=== PATIENT | male | born 1970 | race Caucasian/White ===

== ENCOUNTER 2024-03-18 10:38 | Emergency (ER) | payer BC, SELFPAY ==
[2024-03-18 10:54] VITALS: BP 155/113
--- NOTE | 2024-03-18 11:05 | ED.GENMED ---
History of Present Illness
<Marion Jimenes PA-C - Last Filed: 03/18/24 14:44>
General
Chief Complaint: Abdominal Symptoms
Source: patient
Exam Limitations: none
Time Seen by Provider: 03/18/24 11:04
Nursing documentation reviewed up to this point in time: agreed with
History of Present Illness
History of Present Illness:
This is a 53 y/o male with a PMH of coronary artery disease with multiple stents placed, hypertension, presenting emergency department today with concerns of nausea, vomiting, and generalized GI symptoms. Patient states that 3 days ago, he woke up
feeling nauseous and subsequently had multiple episodes of vomiting. Patient also states that that same day, he had a few episodes of diarrhea. Patient states that he also noted a 'queasy' feeling in his stomach but denies abdominal pain, chest
pain. Patient states that the next day, he started to feel chills as well but states that he never had a fever. Patient states that his illness waxes and wanes and states that he feels like he will be turning the corner and then he will have more
vomiting again. Patient states that day ago he is able to tolerate some rice, however the next day he had persistent vomiting and was not able to tolerate orally his blood pressure medications or even water. Patient states that he is trying to
stick at home and try to stay hydrated but he just could not tolerate it the mild nausea he was having. Patient states that he did a similar episode to this around 8 months ago or so and states that he was seen by his family provider who encouraged
symptomatic management and he states that it got better on its own.
Past History
<Marion Jimenes PA-C - Last Filed: 03/18/24 14:44>
Past History
ED Past Medical History: HTN
ED Past Surgical History: Orthopedic (Knee surgery)
Social History
Tobacco: Non-smoker
Alcohol: Occasional
Personal:
Living: with family
Employment: Employed
Family History
Family History: Hypertension
Review of Systems
<Marion Jimenes PA-C - Last Filed: 03/18/24 14:44>
Review of Systems
All Other Systems: ROS reviewed and negative except as documented in HPI and ROS
Phy Exam
<Marion Jimenes PA-C - Last Filed: 03/18/24 14:44>
Physical Exam
Physical Exam:
General: Patient is well appearing and in no acute distress; non-toxic
Skin: Warm and dry, no rashes or lesions
Head: Normocephalic, atraumatic
Eyes: Sclera non-icteric. EOMs intact. PERRLA.
Cardiac: Regular rate and rhythm, no murmurs
Peripheral Vascular: No lower extremity swelling or edema
Pulm: Normal respiratory effort, equal breath sounds bilaterally, no wheezes, rales, rhonchi
Abdomen: No abdominal tenderness to palpation, no palpable masses
Neuro: CN II-XII intact, no focal neurologic deficits.
Psychiatric: Appropriate mood and affect.
Course
<Marion Jimenes PA-C - Last Filed: 03/18/24 14:44>
Orders/Labs/Results
Orders:
Orders
03/18/24 11:23
0.9% Sodium Chloride 500 ml [Nss] 500 ml IV BOLUS
Ondansetron HCl [Zofran] 4 mg PO NOW STA
03/18/24 11:28
Electrocardiogram (*1) Urgent
Reason for Study: Hypertension, Benign
EKG- Treatment ONCE
03/18/24 11:40
Complete Blood Count/With Diff Urgent
Comprehensive Metabolic Panel Urgent
03/18/24 11:51
Ondansetron Injectable [Zofran] 4 mg IV NOW STA
03/18/24 12:55
0.9% Sodium Chloride 500 ml [Nss] 500 ml IV BOLUS
Abnormal Lab Results
03/18/24
11:40
WBC 12.8 H 10^3/uL
(4.8-10.8)
Absolute Neuts (auto) 9.1 H 10^3/uL
(1.4-6.5)
Absolute Monos (auto) 1.4 H 10^3/uL
(0.1-0.6)
Lymphocytes % 16.9 L %
(20.5-51.1)
Monocytes % 11.0 H %
(1.7-9.3)
Potassium 3.4 L mmol/L
(3.5-5.1)
BUN 37 H mg/dl
(9-20)
Glucose 103 H mg/dl
(70-99)
Albumin 5.3 H g/dl
(3.5-5.0)
03/18/24 11:40
03/18/24 11:40
Vital Signs
Initial and Last Documented VS:
Initial Vital Signs
Temp Pulse Resp BP Pulse Ox
98.3 F 84 18 155/113 97
03/18/24 10:54 03/18/24 10:54 03/18/24 10:54 03/18/24 10:54 03/18/24 10:54
Last Documented Vital Signs
Temp Pulse Resp BP Pulse Ox
98.3 F 72 18 139/93 98
03/18/24 10:54 03/18/24 14:09 03/18/24 14:09 03/18/24 14:09 03/18/24 14:09
<Lewis Sainz, - Last Filed: 03/18/24 12:00>
Orders/Labs/Results
Orders:
Orders
03/18/24 11:23
0.9% Sodium Chloride 500 ml [Nss] 500 ml IV BOLUS
Ondansetron HCl [Zofran] 4 mg PO NOW STA
03/18/24 11:28
Electrocardiogram (*1) Urgent
Reason for Study: Hypertension, Benign
EKG- Treatment ONCE
03/18/24 11:40
Complete Blood Count/With Diff Urgent
Comprehensive Metabolic Panel Urgent
03/18/24 11:51
Ondansetron Injectable [Zofran] 4 mg IV NOW STA
03/18/24 12:55
0.9% Sodium Chloride 500 ml [Nss] 500 ml IV BOLUS
Abnormal Lab Results
03/18/24
11:40
WBC 12.8 H 10^3/uL
(4.8-10.8)
Absolute Neuts (auto) 9.1 H 10^3/uL
(1.4-6.5)
Absolute Monos (auto) 1.4 H 10^3/uL
(0.1-0.6)
Lymphocytes % 16.9 L %
(20.5-51.1)
Monocytes % 11.0 H %
(1.7-9.3)
Potassium 3.4 L mmol/L
(3.5-5.1)
BUN 37 H mg/dl
(9-20)
Glucose 103 H mg/dl
(70-99)
Albumin 5.3 H g/dl
(3.5-5.0)
03/18/24 11:40
03/18/24 11:40
Vital Signs
Initial and Last Documented VS:
Initial Vital Signs
Temp Pulse Resp BP Pulse Ox
98.3 F 84 18 155/113 97
03/18/24 10:54 03/18/24 10:54 03/18/24 10:54 03/18/24 10:54 03/18/24 10:54
Last Documented Vital Signs
Temp Pulse Resp BP Pulse Ox
98.3 F 72 18 139/93 98
03/18/24 10:54 03/18/24 14:09 03/18/24 14:09 03/18/24 14:09 03/18/24 14:09
<Marion Jimenes PA-C - Last Filed: 03/18/24 14:44>
MDM/Problems Addressed
Differential Diagnosis Includes:
ddx include gastroenteritis, irritable bowel disease, c diff infection, ACS, ulcerative colitis, viral syndrome
MDM/Problems Addressed:
Nausea and vomiting:
This is a 53 y/o male with a PMH of coronary artery disease with multiple stents placed, hypertension, presenting emergency department today with concerns of nausea, vomiting, and generalized GI symptoms. Patient states that 3 days ago, he woke up
feeling nauseous and subsequently had multiple episodes of vomiting. Patient also states that that same day, he had a few episodes of diarrhea. Patient states that he also noted a 'queasy' feeling in his stomach but denies abdominal pain, chest
pain. Diarrhea has since resolved but his nausea and vomiting persist. Patient states that he cannot keep medications or water down. Patient was given a total of 1 L of fluid here in the emergency department, his CBC demonstrated mild
leukocytosis and his CMP demonstrated elevated BUN. His EKG today demonstrates a prolonged QT. After fluids and a dose of Zofran, patient did feel a lot better, was able to tolerate water without vomiting. Considering patient's prolonged QT, we
will send him home with Tigan to his pharmacy to use as needed for symptomatic treatment. Return precautions discussed, patient stable for discharge.
Chronic conditions affecting care:
CAD, HTN, GERD, HLP
Acute Exacerbation and/or Progression of Chronic Illness:
HTN-- patient has not been taking his BP medications due to persistent vomiting. Patient's blood pressure elevated upon presentation. Patient's blood pressure improved to 139/93 after treatment. I advised to restart his medications and to follow up
with his primary care.
<Marion Jimenes PA-C - Last Filed: 03/18/24 14:44>
*Pulse Oximetry
Patient hypoxic: no
*EKG
Interpreted by ED Provider?: Yes
EKG Intrepretation Date: 03/18/24
Interpretation: abnormal
Comparison EKG: changes noted (PVCs now present)
Heart Rate: 70
Rate: normal
Rhythm: sinus and PVC's
[employer]: normal axis
Interval: long QT
QRS Pattern: normal QRS
Ischemia: no ischemia
*Critical Care Note
Total Time (30-74mins, 75-104mins- exclusive of procedures): Not Applicable
Data Reviewed
Review of Other/Old Records Reveals: Records (reviewed ER physician documentation from 05/12/23 where patient was seen for similar symptoms )
Source: patient and records
Further Testing Considered But Not Given:
considered CT scan of the abdomen however patient has no tenderness on exam
<Marion Jimenes PA-C - Last Filed: 03/18/24 14:44>
Patient Management
Escalation/DeEscalation of care consider admission/obs:
Admit not indicated. Patient stable for discharge.
<Marion Jimenes PA-C - Last Filed: 03/18/24 14:44>
Update Note
Update Note:
12:53 pm-- Fluids completed. Lab work demonstrates increase in BUN with mild leukocytosis. Trial of water PO, patient was able to tolerate this with a lot of nausea but no vomiting. Prolonged QT noted. Elevated BUN. Will give another 500 ml bag and
reassess
1:53 pm-- On reassessment, second 500 bag is almost completed and patient feels a lot better. Will discharge with Tigan
ED Attending Note
<Marion Jimenes PA-C - Last Filed: 03/18/24 14:44>
-
Portions of this chart may have been created with voice recognition software.� Occasional wrong word or��sound alike� substitutions may have occurred due to the inherent limitations of voice recognition software.
<Lewis Sainz DO - Last Filed: 03/18/24 12:00>
ED Attending Note
Patient seen and examined by attending physician: Yes
I performed the substantive portion of visit, reviewed & personally made and approve the management plan that is documented in note by myself or EVARISTO.: Yes
ED Attending Note:
Seen with PA examined independently nausea vomiting diarrhea for few days history of CAD with stents, no chest pain or shortness of breath will check EKG labs IV fluids antiemetics
Discharge Plan
Departure
Patient Disposition: Home (Routine Discharge)
Date of Disposition: 03/18/24
Time of Disposition: 13:51
Patient with high blood pressure during this ER visit?: Yes
Condition: Good
Discharge Problem:
Nausea and vomiting
Instructions: [place] Diet, Nausea and Vomiting, Adult (DC), BLOOD PRESSURE
Prescriptions:
New
trimethobenzamide 300 mg capsule
300 mg PO Q6H PRN (Reason: nausea and vomiting) Qty: 8 0RF
No Action
carvedilol [Coreg] 25 MG tablet
25 mg PO BID
amlodipine [Norvasc] 5 MG tablet
5 mg PO DAILY
aspirin 81 MG tablet,chewable
81 mg PO DAILY
prasugrel [Effient] 10 MG tablet
10 mg PO DAILY
benazepril 40 mg Tablet
40 mg PO DAILY
rosuvastatin [Crestor] 40 mg Tablet
40 mg PO QPM
Referrals:
Emmanuel Felipe Jr., DO [Family Provider] -
Activity Restrictions/Additional Instructions:
Please resume your blood pressure medications.
We have sent Tigan, an anti-nausea medication to your pharmacy. You can take one tablet every 6 hours as needed for nausea.
Please return to the emergency department should you experience fevers or chills, abdominal pain, chest pain, shortness of breath.
Follow up with your primary care provider in one week for reassessment.
Interventions
Interventions:
*Risk Screen - Suicide Last Done: 03/18/24 10:54
*General Assessment Last Done: 03/18/24 10:54
*Neglect/Abuse Screening Last Done: 03/18/24 10:54
*ED COVID-19 Vaccine History Last Done: 03/18/24 13:57
*Nursing Disposition Last Done: 03/18/24 14:11
HJ-Ajrkdm-Jcplphlkis Assessment Last Done: 03/18/24 13:57
Discharge Date and Time
Discharge Date/Time: 03/18/24 14:11
Print Language: AMHARIC
[2024-03-18 11:32] VITALS: BMI 27.8
[2024-03-18] MEDS: NSS 500 IV ×2 (11:39→13:15)
[2024-03-18] MEDS: ZOFRAN 4 MG IV (11:54)
[2024-03-18 12:15] LABS: % Basophils 0.3 % (0-2); % Eosinophils 0.2 % (0-6); % Immature Granulocytes 0.3 % (0-0.5); % Lymphocytes 16.9 % (20.5-51.1); % Neutrophils 71.3 % (42.2-75.2); Absolute Lymphocytes 2.2 10^3/uL (1.2-3.4); Absolute Monocytes 1.4 10^3/uL (0.1-0.6); Absolute Neutrophils 9.1 10^3/uL (1.4-6.5); Hematocrit 40.5 % (39.0-52.0); Hemoglobin 14.8 g/dL (13.0-18.0); Mean Corp Hgb Conc. 36.5 g/dL (33.0-37.0); Mean Corpuscular Hgb 30.8 pg (27.0-31.0); Mean Corpuscular Volume 84.2 fL (80.0-94.0); Nucleated Red Blood Cells % 0 % (-); Platelet Count 368 10^3/uL (130-400); Red Blood Cell Count 4.81 10^6/uL (4.70-6.10); Red Cell Dist. Width 12.6 % (11.5-14.5); White Blood Cell Count 12.8 10^3/uL (4.8-10.8)
[2024-03-18 12:23] LABS: ALT (SGPT) 32 U/L (0-50); AST (SGOT) 43 U/L (17-59); Albumin 5.3 g/dl (3.5-5.0); Alkaline Phosphatase 70 U/L (38-126); Blood Urea Nitrogen 37 mg/dl (9-20); Calcium 10.2 mg/dl (8.4-10.2); Carbon Dioxide 22 mmol/L (22-30); Chloride 99 mmol/L (98-107); Estimated Creatinine Clearance 96 ml/min; Glucose 103 mg/dl (70-99); Potassium 3.4 mmol/L (3.5-5.1); Sodium 138 mmol/L (135-145); Total Bilirubin 1.3 mg/dl (0.2-1.3); Total Protein 8.2 g/dl (6.3-8.2); eGFR > 60.00
[2024-03-18 14:09] VITALS: BP 139/93
== END 2024-03-18 14:11 | disposition home or self-care (01) ==
LOC: EMR 10:38
PROVIDERS: Physician Assistant; EMERGENCY PHYSICIAN Emergency Medicine; FAMILY PHYSICIAN Family Medicine
DX: R11.2 Nausea with vomiting, unspecified (principal); R19.7 Diarrhea, unspecified; R68.83 Chills (without fever); I25.10 Atherosclerotic heart disease of native coronary artery without angina pectoris; I10 Essential (primary) hypertension; K21.9 Gastro-esophageal reflux disease without esophagitis; I25.2 Old myocardial infarction; Z95.5 Presence of coronary angioplasty implant and graft; Z87.891 Personal history of nicotine dependence; Z79.82 Long term (current) use of aspirin; Z88.0 Allergy status to penicillin
CPT/HCPCS: 99284; 96374; 96361 ×2; 80053; 85025; 93005

== ENCOUNTER 2024-07-29 10:30 | Emergency (ER) | payer BC, SELFPAY ==
[2024-07-29 10:40] VITALS: BP 169/110
--- NOTE | 2024-07-29 10:40 | ED.GENMED ---
ED Provider Triage
<Antonia Verduzco PA-C - Last Filed: 07/31/24 07:04>
-
Patient seen by provider in Triage?: Seen in Triage
53 y/o M with h/o ND
nausea/vomiting and epigastric pain for 5 days
denies fever, chills, diarrhea
not tolerating meds, water, food
gets pain that comes in waves and now constant
drinks alcohol daily 2 burbon drinks nights
tried prescription med thinks it might be Compazine or could have been Tigan, he does have a history of prolonged QTc. This did not help and he is vomiting over that
Patient denies any chest pain. He has not been able to keep down any of his blood pressure medications.
He does use marijuana nightly.
He has had 3 of these episodes without any findings on CT scan or blood work.
History of Present Illness
<Antonia Verduzco PA-C - Last Filed: 07/31/24 07:04>
General
Chief Complaint: Abdominal Symptoms
Time Seen by Provider: 07/29/24 11:11
<Marion Jimenes PA-C - Last Filed: 07/29/24 18:10>
General
Source: patient
Exam Limitations: none
Nursing documentation reviewed up to this point in time: agreed with
History of Present Illness
History of Present Illness:
53-year-old male with a past medical history of CAD, hypertension, hyperlipidemia, GERD presents emergency department today with concerns of epigastric pain and nausea and vomiting for the past 4 days. Patient reports that he has had multiple
episodes of this in the past and states that it feels exactly the same as those times, patient states that he has not followed up with GI for this since and has never gotten endoscopy. Patient describes the pain as indigestion and states that it
radiates to the chest. It is worse after eating. He denies dark tarry stools, dizziness, lightheadedness, hx of abdominal surgeries, diarrhea, constipation, blood in the stools.
Past History
<Antonia Verduzco PA-C - Last Filed: 07/31/24 07:04>
Past History
ED Past Medical History: HTN
ED Past Surgical History: Orthopedic (Knee surgery)
Social History
Tobacco: Non-smoker
Alcohol: Occasional
Personal:
Living: with family
Employment: Employed
Family History
Family History: Hypertension
Review of Systems
<Marion Jimenes PA-C - Last Filed: 07/29/24 18:10>
Review of Systems
All Other Systems: ROS reviewed and negative except as documented in HPI and ROS
Phy Exam
<Marion Jimenes PA-C - Last Filed: 07/29/24 18:10>
Physical Exam
Physical Exam:
General: Patient is well appearing and in no acute distress; non-toxic
Skin: Warm and dry, no rashes or lesions
Head: Normocephalic, atraumatic
Eyes: Sclera non-icteric. EOMs intact.
Cardiac: Regular rate and rhythm, no murmurs
Peripheral Vascular: No lower extremity swelling or edema
Pulm: Normal respiratory effort
Abdomen: No abdominal tenderness to palpation, no pulsatile abdominal mass
Neuro: CN II-XII intact, no focal neurologic deficits.
Psychiatric: Appropriate mood and affect.
Course
<Antonia Verduzco PA-C - Last Filed: 07/31/24 07:04>
Orders/Labs/Results
Orders:
Orders
07/29/24 10:43
Electrocardiogram (*1) Urgent
Reason for Study: Abdominal Pain
EKG- Treatment ONCE
07/29/24 10:48
Ondansetron Orally Disint [Zofran Odt (Orally Disintegrating)] 4 mg PO NOW STA
07/29/24 10:56
Complete Blood Count/With Diff Urgent
Comprehensive Metabolic Panel Urgent
Lipase Urgent
Troponin I Urgent
07/29/24 11:41
Pantoprazole [Protonix IV] 40 mg IV NOW STA
07/29/24 11:45
Famotidine [Pepcid] 20 mg PO NOW STA
07/29/24 12:44
Mag Hydrox/Al Hydrox/Simeth [Maalox] 30 ml Phenobarb/Hyoscy/Atropine/Scop [] 10 ml PO NOW
07/29/24 13:00
Mag Hydrox/Al Hydrox/Simeth [Maalox] 30 ml .ROUTE .STK-MED ONE
Phenobarb/Hyoscy/Atropine/Scop [] 10 ml .ROUTE .STK-MED ONE
Abnormal Lab Results
07/29/24
10:56
WBC 12.8 H 10^3/uL
(4.8-10.8)
MCH 31.2 H pg
(27.0-31.0)
Plt Count 401 H 10^3/uL
(130-400)
Absolute Neuts (auto) 10.1 H 10^3/uL
(1.4-6.5)
Neutrophils % 79.0 H %
(42.2-75.2)
Lymphocytes % 15.5 L %
(20.5-51.1)
BUN 27 H mg/dl
(9-20)
Glucose 120 H mg/dl
(70-99)
Total Protein 8.6 H g/dl
(6.3-8.2)
Albumin 5.3 H g/dl
(3.5-5.0)
07/29/24 10:56
07/29/24 10:56
Vital Signs
Initial and Last Documented VS:
Initial Vital Signs
Temp Pulse Resp BP Pulse Ox
36.9 C 69 16 169/110 98
07/29/24 10:40 07/29/24 10:40 07/29/24 10:40 07/29/24 10:40 07/29/24 10:40
Last Documented Vital Signs
Temp Pulse Resp BP Pulse Ox
36.9 C 68 13 176/93 100
07/29/24 10:40 07/29/24 13:15 07/29/24 13:15 07/29/24 13:00 07/29/24 13:15
<Marion Jimenes PA-C - Last Filed: 07/29/24 18:10>
Orders/Labs/Results
Orders:
Orders
07/29/24 10:43
Electrocardiogram (*1) Urgent
Reason for Study: Abdominal Pain
EKG- Treatment ONCE
07/29/24 10:48
Ondansetron Orally Disint [Zofran Odt (Orally Disintegrating)] 4 mg PO NOW STA
07/29/24 10:56
Complete Blood Count/With Diff Urgent
Comprehensive Metabolic Panel Urgent
Lipase Urgent
Troponin I Urgent
07/29/24 11:41
Pantoprazole [Protonix IV] 40 mg IV NOW STA
07/29/24 11:45
Famotidine [Pepcid] 20 mg PO NOW STA
07/29/24 12:44
Mag Hydrox/Al Hydrox/Simeth [Maalox] 30 ml Phenobarb/Hyoscy/Atropine/Scop [] 10 ml PO NOW
07/29/24 13:00
Mag Hydrox/Al Hydrox/Simeth [Maalox] 30 ml .ROUTE .STK-MED ONE
Phenobarb/Hyoscy/Atropine/Scop [] 10 ml .ROUTE .STK-MED ONE
Abnormal Lab Results
07/29/24
10:56
WBC 12.8 H 10^3/uL
(4.8-10.8)
MCH 31.2 H pg
(27.0-31.0)
Plt Count 401 H 10^3/uL
(130-400)
Absolute Neuts (auto) 10.1 H 10^3/uL
(1.4-6.5)
Neutrophils % 79.0 H %
(42.2-75.2)
Lymphocytes % 15.5 L %
(20.5-51.1)
BUN 27 H mg/dl
(9-20)
Glucose 120 H mg/dl
(70-99)
Total Protein 8.6 H g/dl
(6.3-8.2)
Albumin 5.3 H g/dl
(3.5-5.0)
07/29/24 10:56
07/29/24 10:56
Vital Signs
Initial and Last Documented VS:
Initial Vital Signs
Temp Pulse Resp BP Pulse Ox
36.9 C 69 16 169/110 98
07/29/24 10:40 07/29/24 10:40 07/29/24 10:40 07/29/24 10:40 07/29/24 10:40
Last Documented Vital Signs
Temp Pulse Resp BP Pulse Ox
36.9 C 68 13 176/93 100
07/29/24 10:40 07/29/24 13:15 07/29/24 13:15 07/29/24 13:00 07/29/24 13:15
<Kallie Coyne MD - Last Filed: 07/29/24 13:29>
Orders/Labs/Results
Orders:
Orders
07/29/24 10:43
Electrocardiogram (*1) Urgent
Reason for Study: Abdominal Pain
EKG- Treatment ONCE
07/29/24 10:48
Ondansetron Orally Disint [Zofran Odt (Orally Disintegrating)] 4 mg PO NOW STA
07/29/24 10:56
Complete Blood Count/With Diff Urgent
Comprehensive Metabolic Panel Urgent
Lipase Urgent
Troponin I Urgent
07/29/24 11:41
Pantoprazole [Protonix IV] 40 mg IV NOW STA
07/29/24 11:45
Famotidine [Pepcid] 20 mg PO NOW STA
07/29/24 12:44
Mag Hydrox/Al Hydrox/Simeth [Maalox] 30 ml Phenobarb/Hyoscy/Atropine/Scop [] 10 ml PO NOW
07/29/24 13:00
Mag Hydrox/Al Hydrox/Simeth [Maalox] 30 ml .ROUTE .STK-MED ONE
Phenobarb/Hyoscy/Atropine/Scop [] 10 ml .ROUTE .STK-MED ONE
Abnormal Lab Results
07/29/24
10:56
WBC 12.8 H 10^3/uL
(4.8-10.8)
MCH 31.2 H pg
(27.0-31.0)
Plt Count 401 H 10^3/uL
(130-400)
Absolute Neuts (auto) 10.1 H 10^3/uL
(1.4-6.5)
Neutrophils % 79.0 H %
(42.2-75.2)
Lymphocytes % 15.5 L %
(20.5-51.1)
BUN 27 H mg/dl
(9-20)
Glucose 120 H mg/dl
(70-99)
Total Protein 8.6 H g/dl
(6.3-8.2)
Albumin 5.3 H g/dl
(3.5-5.0)
07/29/24 10:56
07/29/24 10:56
Vital Signs
Initial and Last Documented VS:
Initial Vital Signs
Temp Pulse Resp BP Pulse Ox
36.9 C 69 16 169/110 98
07/29/24 10:40 07/29/24 10:40 07/29/24 10:40 07/29/24 10:40 07/29/24 10:40
Last Documented Vital Signs
Temp Pulse Resp BP Pulse Ox
36.9 C 68 13 176/93 100
07/29/24 10:40 07/29/24 13:15 07/29/24 13:15 07/29/24 13:00 07/29/24 13:15
<Marion Jimenes PA-C - Last Filed: 07/29/24 18:10>
MDM/Problems Addressed
Differential Diagnosis Includes:
ddx include gastritis, pancreatitis, biliary colic, ACS, GERD, AAA
MDM/Problems Addressed:
53-year-old male with a past medical history of CAD, hypertension, hyperlipidemia, GERD presents emergency department today with concerns of epigastric pain and nausea and vomiting for the past 4 days. Patient has been seen in the past in the ER for
these symptoms. On physical exam, is well-appearing, no acute distress, he is not febrile. He has no abdominal tenderness on exam. Does have a mild leukocytosis, I suspect this is secondary to vomiting. CMP unremarkable, troponin undetectable,
EKG shows no concerning ischemic changes. Patient was given GI cocktail, Protonix Pepcid Zofran. Patient states that his symptoms have completely resolved and he feels well. Patient states that he has had an abdominal MRI in the past for the
symptoms as well as a CAT scan but has never had endoscopy. I did contact GI front desk receptionist who are able to get him in for an appointment on August 05 at 4 PM. Patient stable for discharge. Return precautions discussed.
Chronic conditions affecting care:
CAD, HTN, HLP
<Marion Jimenes PA-C - Last Filed: 07/29/24 18:10>
*Pulse Oximetry
Patient hypoxic: no
*Critical Care Note
Total Time (30-74mins, 75-104mins- exclusive of procedures): Not Applicable
Data Reviewed
Review of Other/Old Records Reveals: Records (Reviewed previous ER physician documentation on 03/18/2024 [facility] patient for similar symptoms, reviewed ER physician documentation from 05/12/23)
Source: patient and records
<Marion Jimenes PA-C - Last Filed: 07/29/24 18:10>
Patient Management
Escalation/DeEscalation of care consider admission/obs:
Admit not indicated, patient stable for discharge
ED Attending Note
<Antonia Verduzco PA-C - Last Filed: 07/31/24 07:04>
-
Portions of this chart may have been created with voice recognition software.� Occasional wrong word or��sound alike� substitutions may have occurred due to the inherent limitations of voice recognition software.
<Kallie Coyne MD - Last Filed: 07/29/24 13:29>
ED Attending Note
Patient seen and examined by attending physician: Yes
I performed the substantive portion of visit, reviewed & personally made and approve the management plan that is documented in note by myself or EVARISTO.: Yes
ED Attending Note:
I have seen and evaluated the patient with a [id number] encounter. I have spoken to the [PA] and involved in the medical history, the physical exam, medical decision making.
Evaluation and management service: agree unless noted differently below.
Results interpretation: agree unless noted differently below.
Patient is a 53-year-old male with history of reflux, hypertension, hyperlipidemia presenting to the emergency department with abdominal pain nausea vomiting. Patient states after eating he gets nauseous vomiting with epigastric pain. Has been
occurring for the past 3 to 4 days. This is similar to his prior visits. He was supposed to see GI but has not followed up. He does state that since he has been here he received medications which has significantly improved the pain. He does
state that he takes omeprazole at home daily. No chest pain. No difficulty breathing. No diarrhea. He has been able to tolerate p.o. since he has been here. On exam patient is resting comfortably. He does not have any right upper quadrant
tenderness. Very mild epigastric tenderness. Obtained prior to evaluation does show slightly elevated leukocytosis which could be stress response given the vomiting. He is overall well-appearing. Consider obtaining imaging however he did have
recent imaging. Given that he is asymptomatic and tolerating p.o. at this time we will hold off on any additional imaging. Patient reminded again to follow-up with GI.
Discharge Plan
Departure
Patient Disposition: Home (Routine Discharge)
Date of Disposition: 07/29/24
Time of Disposition: 13:10
Patient with high blood pressure during this ER visit?: Yes
Condition: Good
Discharge Problem:
Epigastric pain, Nausea & vomiting
Instructions: Nausea and Vomiting, Adult (DC), Abdominal Pain, BLOOD PRESSURE
Prescriptions:
No Action
carvedilol [Coreg] 25 MG tablet
25 mg PO BID
amlodipine [Norvasc] 5 MG tablet
5 mg PO DAILY
aspirin 81 MG tablet,chewable
81 mg PO DAILY
prasugrel [Effient] 10 MG tablet
10 mg PO DAILY
benazepril 40 mg Tablet
40 mg PO DAILY
rosuvastatin [Crestor] 40 mg Tablet
40 mg PO QPM
trimethobenzamide 300 mg capsule
300 mg PO Q6H PRN (Reason: nausea and vomiting) Qty: 8 0RF
Referrals:
Laz Metzger MD [Active] - Call in 1-3 days for appt
Emmanuel Felipe Jr., [Family Provider] -
Activity Restrictions/Additional Instructions:
You should receive a call within the next day or two to set up an appointment to see [facility]. If you do not receive a call from them, please call late later tomorrow to schedule an appointment.
Please return to the emergency department should you develop chest pain, back pain, fevers or chills, intractable nausea or vomiting, dark tarry stools, vomiting blood, or any other signs or symptoms worrisome to you.
Interventions
Interventions:
*Risk Screen - Suicide Last Done: 07/29/24 10:40
*General Assessment Last Done: 07/29/24 10:40
*Neglect/Abuse Screening Last Done: 07/29/24 10:42
ED- Fall Risk Assessment Last Done: 07/29/24 11:26
*ED COVID-19 Vaccine History Last Done: 07/29/24 11:25
*Nursing Disposition Last Done: 07/29/24 13:21
PE-Romclr-Hddanvjjbt Assessment Last Done: 07/29/24 11:26
Discharge Date and Time
Discharge Date/Time: 07/29/24 13:21
Print Language: EAST TIM[place]
[2024-07-29 11:18] LABS: % Basophils 0.2 % (0-2); % Eosinophils 0.3 % (0-6); % Immature Granulocytes 0.2 % (0-0.5); % Lymphocytes 15.5 % (20.5-51.1); % Monocytes 4.8 % (1.7-9.3); Absolute Monocytes 0.6 10^3/uL (0.1-0.6); Absolute Neutrophils 10.1 10^3/uL (1.4-6.5); Mean Corp Hgb Conc. 35.6 g/dL (33.0-37.0); Mean Corpuscular Hgb 31.2 pg (27.0-31.0); Mean Corpuscular Volume 87.7 fL (80.0-94.0); Mean Platelet Volume 8.8 fL (7.4-10.4); Nucleated Red Blood Cells % 0 % (-); Platelet Count 401 10^3/uL (130-400); Red Blood Cell Count 5.13 10^6/uL (4.70-6.10); Red Cell Dist. Width 12.7 % (11.5-14.5); White Blood Cell Count 12.8 10^3/uL (4.8-10.8)
[2024-07-29 11:23] LABS: ALT (SGPT) 22 U/L (0-50); AST (SGOT) 26 U/L (17-59); Albumin 5.3 g/dl (3.5-5.0); Alkaline Phosphatase 72 U/L (38-126); Blood Urea Nitrogen 27 mg/dl (9-20); Calcium 10.1 mg/dl (8.4-10.2); Carbon Dioxide 22 mmol/L (22-30); Chloride 100 mmol/L (98-107); Glucose 120 mg/dl (70-99); Lipase 68 U/L (23-300); Potassium 3.6 mmol/L (3.5-5.1); Sodium 140 mmol/L (135-145); Total Bilirubin 1.3 mg/dl (0.2-1.3); Total Protein 8.6 g/dl (6.3-8.2); eGFR > 60.00
[2024-07-29] MEDS: ZOFRAN ODT (ORALLY DISINTEGRATING) 4 MG PO (11:23)
[2024-07-29 11:24] VITALS: BMI 28.1
[2024-07-29 11:33] LABS: Troponin I < 0.012 ng/ml
[2024-07-29 11:41] VITALS: BP 161/90
[2024-07-29] MEDS: PEPCID 20 MG PO (11:54)
[2024-07-29] MEDS: PROTONIX IV 40 MG IV (11:54)
[2024-07-29 12:00] VITALS: BP 183/98
[2024-07-29 13:00] VITALS: BP 176/93
[2024-07-29] MEDS: MAALOX 40 PO (13:01)
== END 2024-07-29 13:21 | disposition home or self-care (01) ==
LOC: EMR 10:30
PROVIDERS: Physician Assistant; EMERGENCY PHYSICIAN Student in an Organized Health Care Education/Training Program; FAMILY PHYSICIAN Family Medicine
DX: R10.13 Epigastric pain (principal); R11.2 Nausea with vomiting, unspecified; I10 Essential (primary) hypertension; I25.10 Atherosclerotic heart disease of native coronary artery without angina pectoris; E78.5 Hyperlipidemia, unspecified; K21.9 Gastro-esophageal reflux disease without esophagitis
CPT/HCPCS: 99284; 96374; 80053; 83690; 84484; 85025; 93005

== ENCOUNTER 2024-08-20 06:21 | Day surgery (SDC) | payer BC, SELFPAY | END 2024-08-20 14:10 | disposition home or self-care (01) | LOC: GI 06:21 | PROVIDERS: ATTENDING PHYSICIAN Internal Medicine Gastroenterology | DX: Z12.11 Encounter for screening for malignant neoplasm of colon (principal); K64.8 Other hemorrhoids; K57.30 Diverticulosis of large intestine without perforation or abscess without bleeding; D12.5 Benign neoplasm of sigmoid colon; D12.3 Benign neoplasm of transverse colon; K62.1 Rectal polyp; R11.2 Nausea with vomiting, unspecified; K29.50 Unspecified chronic gastritis without bleeding; K29.80 Duodenitis without bleeding | CPT/HCPCS: 45385; 45380; 43239; 88305; 88342 ==